=== PATIENT | female | born 2000 | race Two or more races ===

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

== ENCOUNTER 2020-03-18 08:39 | Emergency (ER) | payer MEDICAID ==
[~2020-03-18] VITALS: Ht 160 cm; Wt 74.5 kg
[2020-03-18 08:47] VITALS: BP 143/81
[2020-03-18 09:18] LABS: Basophils # (auto) 0 10 ^3/uL (0-0.2); Basophils % (auto) 0.3 % (0.0-2.0); Eosinophils # (auto) 0 10 ^3/uL (0-0.8); Eosinophils % (auto) 0.3 % (0.0-7.0); Hematocrit 44.1 % (36.0-46.0); Hemoglobin 14.9 g/dL (12.2-16.2); Lymphocytes # (auto) 1.4 10 ^3/uL (0.4-5.4); Mean Corpuscular Hemoglobin 31.1 pg (28.0-32.0); Mean Corpuscular Hgb Conc. 33.7 g/dL (32.0-36.0); Mean Corpuscular Volume 92.3 fL (80.0-100.0); Monocytes # (auto) 0.4 10 ^3/uL (0-1.3); Monocytes % (auto) 6.3 % (0.0-12.0); Neutrophils # (auto) 4.4 10 ^3/uL (1.6-8.6); Neutrophils % (auto) 71.1 % (37.0-80.0); Platelet Count (auto) 298 10^3/uL (140-450); Red Blood Cells 4.78 10^6/uL (4.0-5.20); Red Cell Distribution Width 12.4 % (11.8-14.3); White Blood Cell 6.2 10^3/uL (4.4-10.8)
[2020-03-18 09:35] LABS: Albumin 4.1 g/dL (3.4-5.0); Calcium 9.1 mg/dL (8.5-10.1); Potassium 3.8 mmol/L (3.5-5.1)
[2020-03-18 09:38] LABS: BUN/Creatinine Ratio 22.5; Bilirubin, Total 0.6 mg/dL (0.2-1.0); Total Protein 7.8 g/dL (6.4-8.2)
[2020-03-18 10:09] LABS: Urine Bacteria FEW /hpf (None Seen); Urine Blood 3+ /uL (Negative); Urine Mucus FEW (None Seen); Urine Specific Gravity 1.024 (1.001-1.035); Urine WBC 28 /hpf (0 - 5)
== END 2020-03-18 11:52 | disposition home or self-care (01) ==
LOC: ER 08:39
DX: K21.9 Gastro-esophageal reflux disease without esophagitis (principal); N39.0 Urinary tract infection, site not specified; H60.91 Unspecified otitis externa, right ear
CPT/HCPCS: 36415; 76705; 80053; 81001; 81025; 83690; 85025

== ENCOUNTER 2020-05-20 05:17 | Emergency (ER) | payer MEDICAID ==
[~2020-05-20] VITALS: Ht 160 cm; Wt 72.6 kg
[2020-05-20 06:15] VITALS: BP 148/85
[2020-05-20] MEDS ORDERED: ACETAMINOPHEN 500 MG TAB PO ONE (06:30)
[2020-05-20 06:46] LABS: Urine Bacteria NONE SEEN /hpf (None Seen); Urine Blood TRACE /uL (Negative); Urine Mucus FEW (None Seen); Urine Specific Gravity 1.033 (1.001-1.035); Urine WBC <1 /hpf (0 - 5)
== END 2020-05-20 07:49 | disposition home or self-care (01) ==
LOC: ER 05:17
DX: S56.911A Strain of unspecified muscles, fascia and tendons at forearm level, right arm, initial encounter (principal); S46.311A Strain of muscle, fascia and tendon of triceps, right arm, initial encounter; M25.531 Pain in right wrist; Z32.02 Encounter for pregnancy test, result negative; X58.XXXA Exposure to other specified factors, initial encounter; Y93.89 Activity, other specified; Y92.89 Other specified places as the place of occurrence of the external cause; Y99.8 Other external cause status
CPT/HCPCS: 81001; 81025; 93971

== ENCOUNTER 2022-10-26 06:31 | Emergency (ER) | payer MEDICAID ==
[~2022-10-26] VITALS: Ht 160 cm; Wt 78.6 kg
[2022-10-26 07:17] LABS: Basophils # (auto) 0 10 ^3/uL (0-0.2); Basophils % (auto) 0.4 % (0.0-2.0); Eosinophils # (auto) 0 10 ^3/uL (0-0.8); Eosinophils % (auto) 0.5 % (0.0-7.0); Hematocrit 38.9 % (36.0-46.0); Hemoglobin 13.8 g/dL (12.2-16.2); Lymphocytes # (auto) 1.5 10 ^3/uL (0.4-5.4); Lymphocytes % (auto) 17.9 % (10.0-50.0); Mean Corpuscular Hemoglobin 31.1 pg (28.0-32.0); Mean Corpuscular Hgb Conc. 35.5 g/dL (32.0-36.0); Mean Corpuscular Volume 87.5 fL (80.0-100.0); Monocytes # (auto) 0.7 10 ^3/uL (0-1.3); Monocytes % (auto) 8.3 % (0.0-12.0); Neutrophils % (auto) 72.9 % (37.0-80.0); Nucleated Red Blood Cells % 0.1 %; Red Blood Cells 4.45 10^6/uL (4.0-5.20); Red Cell Distribution Width 12.4 % (11.8-14.3); White Blood Cell 8.3 10^3/uL (4.4-10.8)
[2022-10-26 07:35] LABS: Albumin 3.4 g/dL (3.4-5.0); Calcium 9.8 mg/dL (8.5-10.1); Potassium 3.1 mmol/L (3.5-5.1)
[2022-10-26 07:39] LABS: BUN/Creatinine Ratio 16.9 (10.0-20.0); Bilirubin, Total 0.7 mg/dL (0.2-1.0); Total Protein 8.8 g/dL (6.4-8.2)
[2022-10-26] MEDS ORDERED: SODIUM CHLORIDE 0.9% 1,000 ML IV ONE (08:00)
[2022-10-26] MEDS ORDERED: ONDANSETRON HCL 4 MG/2 ML VIAL IV ONE (08:00)
[2022-10-26] MEDS ORDERED: KETOROLAC TROMETH 30 MG/ML 1ML VIAL IV ONE (08:00)
[2022-10-26] MEDS ORDERED: diphenhdrAMINE HCL 50 MG/1 ML VL IV ONE (08:00)
[2022-10-26] MEDS ORDERED: POTASSIUM EFFERVESENT TAB 25 MEQ PO ONE (08:30)
[2022-10-26] MEDS ORDERED: cefTRIAXone 1GM/50ML D5W 50 ML IV ONE (08:30)
[2022-10-26 09:39] LABS: Urine Bacteria NONE SEEN /hpf (None Seen); Urine Blood 3+ /uL (Negative); Urine Mucus MODERATE (None Seen); Urine Specific Gravity 1.035 (1.001-1.035); Urine Sperm PRESENT /hpf (None Seen); Urine WBC 300 /hpf (0 - 5)
[2022-10-26 09:51] LABS: Amphetamine Screen, Urine NEGATIVE (NEGATIVE); Barbiturate Scree,Urine NEGATIVE (NEGATIVE); Benzodiazephine Screen, Urine NEGATIVE (NEGATIVE); Cannabinoid Screen, Urine POSITIVE (NEGATIVE); Cocaine Screen, Urine POSITIVE (NEGATIVE); Phencyclidine Screen, Urine NEGATIVE (NEGATIVE)
[2022-10-26 10:04] LABS: Opiate Scree,Urine POSITIVE (NEGATIVE)
[2022-10-26] MEDS ORDERED: DICY10CA PO (10:40)
[2022-10-26] MEDS ORDERED: DOXY-447 PO (10:40)
[2022-10-26] MEDS ORDERED: ZOFR4T PO (10:40)
[2022-10-26 11:15] VITALS: BP 112/82
== END 2022-10-26 11:32 | disposition home or self-care (01) ==
LOC: ER 06:31
DX: J03.90 Acute tonsillitis, unspecified (principal); N39.0 Urinary tract infection, site not specified; F19.10 Other psychoactive substance abuse, uncomplicated; E86.0 Dehydration; F41.9 Anxiety disorder, unspecified; R10.2 Pelvic and perineal pain; F12.90 Cannabis use, unspecified, uncomplicated; Z79.899 Other long term (current) drug therapy
CPT/HCPCS: 36415; 74176; 80053; 80307; 81001; 83690; 84702; 85025; 86900; 86901; 87070; 87880; 96365; 96375; 99285; J0696; J1200; J1885; J2405; J7030

== ENCOUNTER 2024-05-26 08:58 | Emergency (ER) | payer MEDICAID ==
[~2024-05-26] VITALS: Ht 160 cm; Wt 77.5 kg
[~2024-05-26 08:58] MED LIST: CEPH250C PO; DICY10CA PO; DOXY1CAP58 PO; POLY335015 PO; ZOFR4T PO
[2024-05-26 09:44] VITALS: BP 153/99; PULSE 129; RESP 20; TEMP 97.9; O2SAT 98
--- NOTE | 2024-05-26 10:05 | ED.PDOC ---
History of Present Illness HPI Comments This is a 23-year-old with no MHx that presents with a chief complaint of URI symptoms for the last three days. Complains of fevers, diarrhea, nonproductive cough, right ear pain, nausea diarrhea. Symptoms started with a cough and have progressed since. Tried [id number] cough medication and [id number] Tylenol with some improvement. Currently on her menstrual cycle. Denies fevers chills night sweats unintentional weight loss Denies persistent chest pain, shortness of breath, leg swelling Denies history of asthma nor any breathing conditions Denies history of pneumonia Denies recent international travel Chief Complaint: Flu like Time Seen by MD: 09:15 Reviewed Notes: Nurses Notes, Medications, Allergies Information Source: Patient Past Medical History PAST MEDICAL HISTORY: Anxiety Surgical History: Denies all surgeries [employer] History: Ovarian Cysts Family History Family History: Reviewed,noncontributory to illness Social History Smoker: Non-Smoker Alcohol: Occasionally Drugs: Marijuana Lives In: Home All Other Systems: Reviewed and Negative (Per HPI) Physical Exam General Appearance: No Apparent Distress, Normal HEENT: Normal ENT Inspection, Pharynx Normal, TMs Normal Neck: Full Range of Motion, Non-Tender, Normal, Normal Inspection Respiratory: Chest Non-Tender, Lungs Clear, No Accessory Muscle Use, No Respiratory Distress, Normal Breath Sounds Cardiovascular: No Edema, No JVD, No Murmur, No Gallop, Normal Peripheral Pulses, Regular Rate/Rhythm Breast Exam: Deferred Gastrointestinal: No Organomegaly, Non Tender, No Pulsatile Mass, Normal Bowel Sounds, Soft Genitalia: Deferred Pelvic: Deferred Rectal: Deferred Extremities: No calf tenderness, Normal capillary refill, Normal inspection, Normal range of motion, Non-tender, No pedal edema Musculoskeletal : Apperance: Normal Neurologic: Alert, supervisor opening and picking II-XII nml as Tested, No Motor Deficits, Normal Affect, Normal Mood, No Sensory Deficits Cerebellar Function: Normal Reflexes: Normal Skin: Dry, Normal Color, Warm Lymphatic: No Adenopathy Was a procedure done? Was a procedure done?: No Fever Differential Dx Differential Diagnosis: Influenza, Viral Syndrome, Other X-Ray, Labs, Meds, VS Vital Signs Date Time Temp Pulse Resp B/P (MAP) Pulse Ox O2 Delivery O2 Flow Rate FiO2 05/26/24 09:44 129 20 98 Room Air 05/26/24 09:44 97.9 129 20 153/99 (117) 98 97.9 05/26/24 09:16 97.9 129 20 153/99 (117) 98 Lab Test 05/26/24 10:48 05/26/24 10:27 05/26/24 10:17 Range/Units Urine Color Dark-yellow Yellow Urine Clarity Turbid H Clear Urine pH 6.0 5.0-9.0 Urine Specific Tabiona 1.037 H 1.001-1.035 Urine Protein 1+ H Negative Urine Ketones 3+ H Negative Urine Blood 1+ H Negative /uL Urine Nitrite Negative Negative Urine Bilirubin 1+ H Negative Urine Urobilinogen 12 H Negative mg/dL Urine Leukocyte Esterase Trace Negative /uL Urine RBC 39 0 - 4 /hpf Urine Microscopic WBC 10 H 0-5 /HPF Urine Squamous Epithelial Cells Few <5 /hpf Urine Bacteria None seen None Seen /hpf Urine Hyaline Casts Few 0 - 2 /lpf Urine Mucus Few None Seen Urine Glucose Normal Normal mg/dL Influenza Type A Antigen Negative Negative Influenza Type B Antigen Positive Negative SARS-CoV-2 Antigen (Rapid) Negative NEGATIVE White Blood Count 7.5 4.4-10.8 10^3/uL Red Blood Count 5.20 4.0-5.20 10^6/uL Hemoglobin 16.3 H 12.2-16.2 g/dL Hematocrit 48.0 H 36.0-46.0 % Mean Corpuscular Volume 92.3 80.0-100.0 fL Mean Corpuscular Hemoglobin 31.3 28.0-32.0 pg Mean Corpuscular Hemoglobin Concent 33.9 32.0-36.0 g/dL Red Cell Distribution Width 13.0 11.8-14.3 % Platelet Count 243 140-450 10^3/uL Mean Platelet Volume 8.7 6.9-10.8 fL Neutrophils (%) (Auto) 74.3 37.0-80.0 % Lymphocytes (%) (Auto) 18.6 10.0-50.0 % Monocytes (%) (Auto) 6.9 0.0-12.0 % Eosinophils (%) (Auto) 0.1 0.0-7.0 % Basophils (%) (Auto) 0.1 0.0-2.0 % Neutrophils # (Auto) 5.6 1.6-8.6 10 ^3/uL Lymphocytes # (Auto) 1.4 0.4-5.4 10 ^3/uL Monocytes # (Auto) 0.5 0-1.3 10 ^3/uL Eosinophils # (Auto) 0 0-0.8 10 ^3/uL Basophils # (Auto) 0 0-0.2 10 ^3/uL Nucleated Red Blood Cells 0.3 % Sodium Level 137 136-145 mmol/L Potassium Level 3.2 L 3.5-5.1 mmol/L Chloride Level 102 98-107 mmol/L Carbon Dioxide Level 21 20-31 mmol/L Anion Gap 14 5-15 Blood Urea Nitrogen 13 9-23 mg/dL Creatinine 0.93 0.550-1.02 mg/dL Glomerular Filtration Rate Calc 88 >90 mL/min BUN/Creatinine Ratio 14.0 10.0-20.0 Serum Glucose 109 H 74-106 mg/dL Calcium Level 10.1 8.7-10.4 mg/dL Total Bilirubin 1.0 0.2-1.0 mg/dL Aspartate Amino Transferase (AST) 53 H 13-40 U/L Alanine Aminotransferase (ALT) 67 H 7-40 U/L Alkaline Phosphatase 77 46-116 U/L Total Protein 9.2 H 5.7-8.2 g/dL Albumin 5.4 H 3.2-4.8 g/dL Current Medications Medications (Trade) Dose Ordered Sig/Bárbara Route Start Time Stop Time Status Last Admin Sodium Chloride 500 ml @ 1,000 mls/hr Q30M ONCE IV 05/26/24 10:15 05/26/24 10:44 DC 05/26/24 10:21 Ondansetron HCl (Zofran) 4 mg PRN ONCE IV 05/26/24 10:15 05/26/24 10:16 DC 05/26/24 10:18 Ketorolac Tromethamine (Toradol Injection) 30 mg ONCE ONCE IV 05/26/24 10:15 05/26/24 10:16 DC 05/26/24 10:18 Ceftriaxone Sodium 50 ml @ 100 mls/hr ONCE ONCE IV 05/26/24 10:15 05/26/24 10:44 DC 05/26/24 10:17 X-Ray, Labs, Meds, VS Comment On presentation, the patient is afebrile and has stable vital signs. The patient is overall well-appearing nontoxic on exam. On physical exam, respirations even and unlabored, clear to auscultation bilaterally. Oxygen stable on room air. Viral testing done and results show influenza B Did not have any focal lung findings and therefore chest x-ray was not indicated during this exam Low suspicion of strep pharyngitis given physical exam findings and patient's presenting symptoms No signs of meningismus on exam Overall, the patient is well hydrated and nontoxic. Plan for symptomatic control for fever and pain as needed. The patient was able to tolerate p.o. intake in the ED. at this time, patient is safe for discharge home. The exam findings and plan discussed. We will discharge home with PCP follow up and strict return precautions. Discussed that cough can linger up to 6 weeks after viral URI Supportive care and return precautions discussed Counseled viral infection and explained that antibiotics would not be helpful in resolving the illness sooner. Recommended vitamin C, rest, handwashing, and symptomatic care. Expect 2-week course with possibly of cough lingering up to 6 weeks. Nonpharmacological remedies for fluids has been recommended as well On reevaluation, patient had symptomatic improvement. Patient is stable for discharge at this time. External notes reviewed. Test results and diagnostic imaging interpreted. All diagnostic findings, discharge care, education and instructions provided Follow-up with PCP in 2 to 3 days Patient verbalized understanding and agreed to treatment plan Vital signs stable, afebrile, no acute distress noted Patient ambulatory with strong steady gait Advised to return precautions for any new or worsening symptoms, return to ER immediately for re-evaluation Patient is aware that the purpose of this visit was for an acute medical emergency requiring emergent stabilization. Chronic conditions, including malignancies have not been ruled out. Patient is instructed to follow up with PCP as directed and discharge instructions for continued care and workup. If unable to arrange follow-up, patient is to return to the emergency department for reassessment. Patient (parent or legal guardian if applicable) was given verbal and written discharge instructions and acknowledges understanding. Time of 1ST Reevaluation: 10:45 Reevaluation 1ST: Improved Time of 2ND Reevaluation: 11:35 Patient Education/Counseling: Diagnosis, Treatment Family Education/Counseling: Diagnosis, Treatment Departure 1 Departure Time of Disposition: 11:35 Impression: Primary Impression: Middle ear infection Qualified Codes: H66.001 - Acute suppurative otitis media without spontaneous rupture of ear drum, right ear Additional Impressions: Nausea & vomiting Qualified Codes: R11.2 - Nausea with vomiting, unspecified Viral syndrome Influenza B Disposition: HOME / SELF CARE / HOMELESS Condition: Fair e-Prescriptions Ibuprofen Micronized (Ibuprofen) 600 Mg Tab 600 MG PO TIDP PRN for 7 Days, #21 TAB 0 Refills Prov: YASMEEN BROWN [employer] 05/26/24 Acetaminophen (Acetaminophen) 500 Mg Tab 500 MG PO Q6HP PRN for 7 Days, #28 TAB 0 Refills Prov: YASMEEN BROWN [employer] 05/26/24 Ondansetron HCl (Ondansetron) 4 Mg Tab 4 MG PO Q8HP PRN for 3 Days, #9 TAB 0 Refills Prov: YASMEEN BROWN [employer] 05/26/24 Amoxicillin & Pot Clavulanate (AUGMENTIN TABLET) 875 Mg Tb 875 MG PO BID for 5 Days, #10 TAB 0 Refills Prov: YASMEEN BROWN NP 05/26/24 Ciprofloxacin-Dexamethasone (Ciprofloxacin/Dexamethaso 0.3-0.1 %) 1 Cristina Cristina 4 DROP OT BID for 7 Days, #5 ML 0 Refills Prov: YASMEEN BROWN [employer] 05/26/24 Critical Care Note Critical Care Time?: No Stability Stability form required: No Heart Score Heart Score: Heart Score Response (Comments) Value History N/A 0 EKG N/A 0 Age N/A 0 Risk Factors N/A 0 Troponin N/A 0 Total 0 YASMEEN BROWN NP May 26, 2024 10:05
[2024-05-26] MEDS: cefTRIAXone 1GM/50ML D5W 50 ML IV ONE (10:17)
[2024-05-26] MEDS: ONDANSETRON HCL 4 MG/2 ML VIAL IV ONE (10:18)
[2024-05-26] MEDS: KETOROLAC TROMETH 30 MG/ML 1ML VIAL IV ONE (10:18)
[2024-05-26] MEDS: SODIUM CHLORIDE 0.9% 500 ML IV ONE (10:21)
[2024-05-26 10:50] LABS: Urine Bacteria None Seen /hpf (None Seen)
[2024-05-26 10:58] LABS: Basophils # (auto) 0 10 ^3/uL (0-0.2); Basophils % (auto) 0.1 % (0.0-2.0); Eosinophils # (auto) 0 10 ^3/uL (0-0.8); Eosinophils % (auto) 0.1 % (0.0-7.0); Hemoglobin 16.3 g/dL (12.2-16.2); Lymphocytes # (auto) 1.4 10 ^3/uL (0.4-5.4); Lymphocytes % (auto) 18.6 % (10.0-50.0); Mean Corpuscular Hemoglobin 31.3 pg (28.0-32.0); Mean Corpuscular Hgb Conc. 33.9 g/dL (32.0-36.0); Mean Corpuscular Volume 92.3 fL (80.0-100.0); Monocytes # (auto) 0.5 10 ^3/uL (0-1.3); Monocytes % (auto) 6.9 % (0.0-12.0); Neutrophils # (auto) 5.6 10 ^3/uL (1.6-8.6); Neutrophils % (auto) 74.3 % (37.0-80.0); Nucleated Red Blood Cells % 0.3 %; Platelet Count (auto) 243 10^3/uL (140-450); White Blood Cell 7.5 10^3/uL (4.4-10.8)
[2024-05-26] MEDS ORDERED: ONDA-155 PO (11:39)
[2024-05-26] MEDS ORDERED: CIPR1SUS8 OT (11:39)
[2024-05-26] MEDS ORDERED: IBUP1TAB5 PO (11:39)
[2024-05-26] MEDS ORDERED: ACET500T58 PO (11:39)
[2024-05-26] MEDS ORDERED: AUG875T PO (11:39)
[2024-05-26 11:41] LABS: Urine Blood 1+ /uL (Negative); Urine Clarity Turbid (Clear); Urine Color Dark-Yellow (Yellow); Urine Hyaline Cast FEW /lpf (0 - 2); Urine Mucus FEW (None Seen); Urine Protein, UAD 1+ (Negative); Urine Specific Gravity 1.037 (1.001-1.035); Urine Squamous Epithelial Cell FEW /hpf (<5); Urine Urobilinogen 12 mg/dL (Negative); Urine WBC 10 /HPF (0-5)
[2024-05-26 12:07] LABS: Anion Gap 14 (5-15); Blood Urea Nitrogen 13 mg/dL (9-23); Calcium 10.1 mg/dL (8.7-10.4); Carbon Dioxide 21 mmol/L (20-31); Chloride 102 mmol/L (98-107); Sodium 137 mmol/L (136-145)
[2024-05-26 12:18] LABS: Alanine Aminotransferase 67 U/L (7-40); Albumin 5.4 g/dL (3.2-4.8); Aspartate Aminotransferase 53 U/L (13-40); Glucose 109 mg/dL (74-106); Potassium 3.2 mmol/L (3.5-5.1); Total Protein 9.2 g/dL (5.7-8.2)
[2024-05-26 12:33] LABS: Rapid Influenza A Negative (Negative)
[2024-05-26 12:41] LABS: Rapid Influenza B Positive (Negative)
[2024-05-26 12:47] LABS: COVID19 ANTIGEN SOFIA FIA NEGATIVE (NEGATIVE)
[2024-05-26 13:05] LABS: Alkaline Phosphatase 77 U/L (46-116)
== END 2024-05-26 11:52 | disposition home or self-care (01) ==
LOC: ER 08:58
DX: J10.1 Influenza due to other identified influenza virus with other respiratory manifestations (principal); H66.91 Otitis media, unspecified, right ear; R11.2 Nausea with vomiting, unspecified; F41.9 Anxiety disorder, unspecified; R19.7 Diarrhea, unspecified; R50.9 Fever, unspecified; Z20.822 Contact with and (suspected) exposure to COVID-19
CPT/HCPCS: 36415; 80053; 81001; 85025; 87426; 87804; 96365; 96375; 99284; J0696; J1885; J2405